=== PATIENT | male | born 1970 ===

== ENCOUNTER 2018-02-24 16:02 | Outpatient (REF) | payer BC, SELFPAY ==
[2018-02-24 21:12] LABS: ALT 34 U/L (12-78); Anion Gap 8.9 mmol/L (3-11); BUN 11 mg/dL (7-18); CO2 29.1 mmol/L (21.0-32.0); CREATININE 0.95 mg/dL (0.70-1.30); Calcium 8.7 mg/dL (8.5-10.1); Chloride 102 mmol/L (98-107); Cholesterol 145 mg/dL (50-200); Glucose 108 mg/dL (70-100); HDL Cholesterol 30 mg/dL (40-60); LDL CHOLESTEROL 96 mg/dL (<100); Potassium 4.1 mmol/L (3.5-5.1); Sodium 140 mmol/L (136-145); Triglyceride 164 mg/dL (30-150)
== END 2018-02-24 16:22 ==
LOC: NCHCN 16:02
PROVIDERS: PCP Internal Medicine; Visit Provider Internal Medicine
DX: I10 Essential (primary) hypertension (principal); I25.10 Atherosclerotic heart disease of native coronary artery without angina pectoris; E66.9 Obesity, unspecified
CPT/HCPCS: 80048; 80061; 83721; 84460

== ENCOUNTER 2019-07-13 15:13 | Outpatient (REF) | payer BC, SELFPAY ==
[2019-07-13 21:20] LABS: ALT 36 U/L (16-63); AST 22 U/L (15-37); Albumin 4.5 g/dL (3.4-5.0); Alkaline Phosphatase 97 U/L (46-116); Anion Gap 6.7 mmol/L (3-11); BUN 15 mg/dL (7-18); Bilirubin, Total 1.4 mg/dL (0.2-1.0); CO2 32.3 mmol/L (21.0-32.0); Calcium 9.2 mg/dL (8.5-10.1); Calculated LDL 100 mg/dL (<100); Chloride 102 mmol/L (98-107); Cholesterol 170 mg/dL (<200); Glucose 110 mg/dL (74-106); HDL Cholesterol 32 mg/dL (40-60); Potassium 4.8 mmol/L (3.5-5.1); Sodium 141 mmol/L (136-145); Total Protein 7.8 g/dL (6.4-8.2); Triglyceride 192 mg/dL (<150)
[2019-07-13 21:21] LABS: Hemoglobin A1C 6.1 % (3.8-5.6)
== END 2019-07-13 15:33 ==
LOC: NCHCN 15:13
PROVIDERS: PCP Internal Medicine; Visit Provider Internal Medicine
DX: I10 Essential (primary) hypertension (principal); I25.10 Atherosclerotic heart disease of native coronary artery without angina pectoris
CPT/HCPCS: 80053; 80061; 83036

== ENCOUNTER 2019-12-21 16:35 | Outpatient (REF) | payer BC, SELFPAY ==
[2019-12-21 21:45] LABS: ALT 36 U/L (16-63); AST 22 U/L (15-37); Albumin 4.4 g/dL (3.4-5.0); Alkaline Phosphatase 81 U/L (46-116); Bilirubin, Direct 0.17 mg/dL (0.00-0.20); Bilirubin, Total 1.1 mg/dL (0.2-1.0); Total Protein 7.9 g/dL (6.4-8.2)
== END 2019-12-21 16:55 ==
LOC: NCHCN 16:35
PROVIDERS: PCP Internal Medicine; Visit Provider Internal Medicine
DX: R73.03 Prediabetes (principal); R17 Unspecified jaundice; R74.8 Abnormal levels of other serum enzymes
CPT/HCPCS: 80076

== ENCOUNTER 2020-06-25 16:20 | Outpatient (REF) | payer BC, SELFPAY ==
[2020-06-25 16:17] LABS: Anion Gap 12.8 mmol/L (3-11); BUN 15 mg/dL (7-18); CO2 24.2 mmol/L (21.0-32.0); CREATININE 0.86 mg/dL (0.70-1.30); Calcium 8.6 mg/dL (8.5-10.1); Chloride 99 mmol/L (98-107); Glucose 177 mg/dL (74-106); Sodium 136 mmol/L (136-145)
== END 2020-06-25 16:40 ==
LOC: NCHCN 16:20
PROVIDERS: PCP Internal Medicine; Visit Provider Internal Medicine
DX: R73.03 Prediabetes (principal); I10 Essential (primary) hypertension; E66.9 Obesity, unspecified
CPT/HCPCS: 80048; 83036